=== PATIENT | female | born 1965 | race Caucasian/White ===

== ENCOUNTER → 2018-09-10 09:42 | Outpatient (CLI) | payer MEDICAID, SELFPAY ==
--- NOTE | 2018-09-10 09:45 | BI_ITS ---
MAMMOGRAPHY - BILATERAL SCREENING REASON FOR EXAM: Female, 52 years old. Routine annual screening examination. PERTINENT HISTORY: Aunt with breast cancer. TECHNIQUE: Digital bilateral breast michael (3D mammographic acquisition) in the CC and MLO projections. 2-D mediolateral oblique (MLO) and craniocaudad (CC) views of both breasts were obtained. CAD: Full Field Digital Mammography with Computer Added Detection was performed. COMPARISON: No comparison mammograms available at this time. If any prior films become available, an addendum to this report can be generated. FINDINGS: Breast Composition: The breasts are heterogeneously dense, which may obscure small masses. There is a 5.7 mm x 8.2 mm slightly irregular nodular density in the upper deep lateral portion of the left breast. Correlation with ultrasound and additional views including 90 degree lateral and compression spot views is recommended. No other significant abnormalities are identified. BI/SCREENING MAMM (CAD), BILAT IMPRESSION: 5.7 mm x 8.2 mm slightly irregular nodular density in the deep upper lateral portion of the left breast as described. The patient will be recalled for ultrasound and additional views. ASSESSMENT CATEGORY: BIRADS Category 0: Incomplete. Need additional imaging evaluation. A letter regarding these results will be sent to the patient by the facility within 30 days. Approximately 10% of breast cancers are not detected by mammography. A normal mammogram should not delay biopsy of a clinically suspicious abnormality. [id number] Electronically Signed: Devonte Justin MD at 13:00 EST Tel [phone], Service support ,
--- OUTSIDE RECORDS SUMMARY | 2018-12-12 16:46 | XMS RPT_ITS ---
:1965 Author Organization OHIP Care Team Providers Name Role Phone Marium Green Attending Unavailable Mibenitael, Marium Attending Unavailable Mibenitael, Marium Referring Unavailable Miedel, Marium Primary Care Unavailable Robotham, Juany Attending Unavailable Miedel, Marium Referring Unavailable Robotham, Juany Attending Unavailable Robotham, Juany Referring Unavailable Miedel, Marium Primary Care Unavailable Robotham, Juany Attending Unavailable Robotham, Juany Referring Unavailable Miedel, Marium Primary Care Unavailable Robotham, Juany Consulting Unavailable Robotham, Juany Attending Unavailable Miedel, Marium Primary Care Unavailable PROBLEMS PROBLEMS DATE TYPE CONDITION / CODE ATTENDING STATUS SOURCE 10/01/2018 Unknown N63.20 - Christi Active Yaz Unspecified lump [facility] left Hospital breast, Repository unspecified quadrant / N63.20(ICD-10) PROCEDURES PROCEDURES No Procedure Records FoundRESULTS RESULTS BREAST LIMITED Observed: 10/08/2018 Status: F Source: Y[facility] UNILATERAL 7[facility] AM [facility] Imaging Services [address] [place] [address] Breast Limited Unilateral MR#: [id number] Acct: [id number] Name: NATHALIE PENALOZA Rep #: [id number] : 1965 F 52 From: Devonte Justin MD PCP: Marium Green MD Status: REG CLI Study: Breast Limited Unilateral Date of Exam: 10/08/18 Exam# [id number] Ordering Dr: Juany Barraza MD STUDY: ULTRASOUND BREAST - LEFT REASON FOR EXAM: Female, 52 years old. Palpable lump left breast. TECHNIQUE: Axial and longitudinal images of the LEFT breast were performed with a high resolution ultrasound transducer. COMPARISON: Comparison is made with prior ultrasound of the left breast dated October 01, 2018. FINDINGS: LEFT Breast: The patient underwent a recent biopsy of the nodular density at that site. At this time, a tissue clip marker is seen within the nodule. The nodule as a different appearance with a 6.8 mm x 3.9 mm echogenic nodule within it suggestive of post biopsy hematoma. Short-term follow-up is recommended. US/Breast Limited Unilateral IMPRESSION: Status post left breast biopsy suggestive of postop biopsy hematoma. A repeat sonogram in 3 months is recommended. ASSESSMENT CATEGORY: BIRADS Category 3: Probably Benign - Short-Interval Follow- up Suggested. A letter regarding these results will be sent to the patient by the facility within 30 days. Electronically Signed: Devonte Justin MD at 8:47 EST Tel [phone], Service support , CC: Marium Green MD; Juany Barraza MD Automatic Pilot Mechanic: Signed OPERATIVE REPORT Observed: 10/01/2018 Status: F Source: YAZ 8:25 AM [facility] REPOSITORY [facility] Medical Records Department [address] [place] [address] Operative Report 10/01/18814 MR#: [id number] Acct: [id number] Name: NATHALIE PENALOZA Rep #: [id number] : 1965 52 From: Juany Barraza MD PCP: Marium Green MD Status: REG CLI Y Location: OPUS Operative Report Date of Procedure: 10/01/18 Procedure: ultrasound-guided core biopsy Indications: 52 year-old female with hypoechoic nodule at 1:00 in the left breast 3 centimeters from the nipple. Risk benefits were discussed the patient and she elected to proceed with ultrasound guided core biopsy with clip placement Description of procedure: Patient was brought into the ultrasound room in the left breast was marked. A timeout was completed verifying correct patient, procedure, site, specially, prior to beginning procedure. The left breast was prepped and draped in usual sterile fashion and using local anesthesia was obtained with 1% lidocaine with epi. The lesion was located with the ultrasound. Small incision was made with 11 blade to introduced the mammotome through the skin. Under ultrasound guidance multiple core samples were obtained using then 13-gauge mammotome and sent in formalin for pathology. The mammotome mammostar clip was then deployed into the biopsy cavity under ultrasound guidance and a picture was taken. Upon completion procedure hemostasis was obtained and a Steri-Strip and OpSite were placed. Patient was then taken to the mammography suite for clip verification. The clip was verified. The patient tolerated the procedure well and was discharged from the breast imaging department good condition. complications: none 10/01/18824 <Electronically signed by Juany Barraza MD> Date Juany Barraza MD CC: Marium Green MD; Juany Barraza MD Signed BREAST BIOPSY Observed: 10/01/2018 Status: F Source: YAZ (CHOOSE SITE) 8:00 AM [facility] REPOSITORY Patient: NATHALIE PENALOZA : 1965 (52/F) Acct Num: [id number] Phys: Christi CHANEY,[facility] Unit Num: [id number] Loc: OPUS Specimen: [id number] Received: 10/01/18854 Spec Type: BREAST BX TISSUES 1 TISSUES: Left breast, NOS COMMENT Correlation with clinical, radiologic findings and appropriate follow up are necessary. If there is high suspicion of malignancy, rebiopsy is suggested if clinically indicated. GROSS DESCRIPTION Received is one container labeled with the patient's name and not further designated. The specimen consists of multiple irregular and elongated fragments of light mccloud-yellow soft tissue that in aggregate measure 1.5 x 1 x 0.1 cm. The specimen is totally submitted in one cassette. / AM:lg 10/01/18 TC:4 CPT: 23876 HEADER OPERATION: Left breast biopsy PRE-OP DIAGNOSIS: Left breast lesion TISSUE SUBMITTED: Left breast 1 o'clock, 3 cm from nipple, nodule ISCHEMIC TIME: 1 minute FIXATION TIME: 12.5 hours MICROSCOPIC DESCRIPTION Slides are reviewed. MICROSCOPIC DIAGNOSIS Left breast lesion, 1 o'clock, 3 cm from nipple, core biopsy: Fragments of benign breast tissue, no pathologic diagnosis. Negative for atypia or malignancy. SJ:lg 10/02/18 Signed Juliano Couch MD 10/02/18 <signature on file> Performed By: #### PBRBX #### [facility] [address] [place], [place], [address] US BREAST BIOPSY Observed: 10/01/2018 Status: F Source: YAZ 1ST LESION 7:22 AM [facility] REPOSITORY [facility] Imaging Services [address] [place] [address] US Breast Biopsy 1st Lesion MR#: [id number] Acct: [id number] Name: NATHALIE PENALOZA Rep #: [id number] : 1965 F 52 From: Devonte Justin MD PCP: Marium Green MD Status: REG CLI Study: US Breast Biopsy 1st Lesion Date of Exam: 10/01/18 Exam# [id number] Ordering Dr: Juany Barraza MD STUDY: ULTRASOUND BREAST - LEFT REASON FOR EXAM: Female, 52 years old. Ultrasound guided left breast biopsy. TECHNIQUE: Axial and longitudinal images of the LEFT breast were performed with a high resolution ultrasound transducer. COMPARISON: Comparison is made with prior sonogram of the left breast dated September 12, 2018. FINDINGS: LEFT Breast: The surgeon performed a biopsy of the 5 mm x 7 mm hypodense nodule at the 1:00 position of the breast at 3 cm from the nipple. A tissue clip marker is seen at that site. US/US Breast Biopsy 1st Lesion IMPRESSION: Ultrasound guided breast biopsy of the nodular density at the 1:00 position breast at 3 cm from the nipple. ASSESSMENT CATEGORY: BIRADS Category 4: Suspicious - Biopsy Should Be Considered. A letter regarding these results will be sent to the patient by the facility within 30 days. Electronically Signed: Devonte Justin MD at 8:56 EST Tel [phone], Service support , CC: Marium Green MD; Juany Barraza MD Automatic Pilot Mechanic: Signed SURGERY VISIT REPORT Observed: 09/20/2018 Status: F Source: INDIAN HEAD 3:12 PM [facility] REPOSITORY [facility] [address] [place] [address] [address] [place], [place] [address] OFFICE VISIT Date of Service: 09/20/18 MR#: [id number] Acct: [id number] Name: NATHALIE PENALOZA Rep #: [id number] : 1965 Provider: Juany Barraza MD Age/Sex: 52/F Location: BMS.[facility]SA Status: Signed Intake Vital Signs09/20/18 Height 5 ft 2 in 09/20/18 Weight: 171 lb Intake Visit Reasons: Abnormal Mammo L Breast Mammo AND US 09/12 [facility] [employer] G Required: No Is patient in pain?: No Allergies terbinafine [From Lamisil] Allergy (Unknown, Verified 09/20/18 14:26) Unknown Medications NK 09/20/18 [History Confirmed 09/20/18] [facility] Medical History Abnormal mammogram of left breast (Acute) Surgical History No significant past surgical history (Acute) Family History Father Colon cancer Cancer skin Brother Cancer skin cancer Kidney disease Social History Smoking Status: Never smoker alcohol intake: current alcohol intake frequency: holidays/special occasions only substance use type: does not use caffeine: Yes what type of physical activity do you participate in: walking, running frequency: 5-6 times per week HPI HPI HPI: NATHALIE PENALOZA, is a 52 F who presents to the office today for left breast mass. Patient denies any lumps or masses in either breast or trauma to either breast or nipple discharge. Patient had her first mammography on 09/10/18 which showed a 5.7 mm x 8.2 mm slightly irregular nodule density in the deep upper lateral portion of the left breast and an ultrasound was also ordered which showed a 5 mm x 7 mm x 4 mm hypodense slightly irregular nodule at the 1 o'clock position 3 cm from the nipple in the left breast and BI-RADS 4 Luly model Age: 52 Age of menses: 10 Age at time of first child: None Family history of breast cancer: No immediate, maternal aunt in her 70s Number of past breast biopsies: None Number breast biopsy showing atypical hyperplasia: n/a Race/ethnicity: white 5 year risk 1.3 % (average of 1.4%) Lifetime risk 9.3 % (average 10.4 %) ROS Breast Breast: No nipple discharge Exam Const General: cooperative, comfortable, no acute distress Chest Chest palpation AND inspection: normal inspection of the chest Breast inspection: normal inspection of the breasts, normal inspection of the axillae Breast Palpation: Yes normal palpation of the breasts (bilaterally), Yes no axillary lymphadenopathy (bilaterally), No breast mass, No nipple discharge, No supraclavicular, No change in skin, No axillary lymphadenopathy Resp Effort AND Inspection: normal respiratory effort Assessment AND Plan Problems 1. Mass of left breast N63.20 Plan I have discussed above with the patient. I have recommended ultrasound guided needle core breast biopsy with vacuum assistance in radiology. I have described the procedure to the patient. A marker clip will be placed to identify the location. Patient has been counseled to the risks/benefits of the procedure. I have explained the risks of the surgery, including but not limited to: infection, bleeding, injury to any blood vessels/nerves, scar tissue, missing the lesion, further surgery, etc. - the patient understands and agrees to proceed. I have answered all of the patient's questions to her satisfaction and she has no further questions. Juany Barraza M.D. Pager: [phone] [facility] [address] [place] [address], [address] [place] [address] Office: [phone] Orders Orders: Plan Detail Follow Up We will schedule left breast ultrasound-guided breast Coding Level of Care Code Off vis,new,level 3 Diagnoses Mass of left breast N63.20 09/20/18 1512 <Electronically signed by Juany Barraza MD> Date Juany Barraza MD Cosigner Signature: Date (if applicable) CC: Marium Green MD BREAST LIMITED Observed: 09/12/2018 Status: F Source: YAZ UNILATERAL 9:15 AM [facility] REPOSITORY [facility] Imaging Services [address] [place] [address] Breast Limited Unilateral MR#: [id number] Acct: [id number] Name: NATHALIE PENALOZA Rep #: [id number] : 1965 F 52 From: Devonte Justin MD PCP: Marium Green MD Status: REG CLI Study: Breast Limited Unilateral Date of Exam: 09/12/18 Exam# [id number] Ordering Dr: Marium Green MD STUDY: ULTRASOUND BREAST - LEFT REASON FOR EXAM: Female, 52 years old. Abnormal screening mammogram. TECHNIQUE: Axial and longitudinal images of the LEFT breast were performed with a high resolution ultrasound transducer. COMPARISON: Comparison is made with prior screening mammogram dated September 10, 2018 and September 12, 2018. FINDINGS: LEFT Breast: There is a 5 mm x 7 mm x 4 mm hypodense slightly irregular nodule at the 1:00 position of breast at 3 cm from the nipple. A biopsy is recommended for further evaluation. US/Breast Limited Unilateral IMPRESSION: 5 mm x 7 mm x 4 mm slightly irregular hypodense nodule at the 1:00 position of the breast at 3 cm from the nipple. A biopsy is recommended. ASSESSMENT CATEGORY: BIRADS Category 4: Suspicious - Biopsy Should Be Considered. A letter regarding these results will be sent to the patient by the facility within 30 days. Electronically Signed: Devonte Justin MD at 14:42 EST Tel [phone], Service support , CC: Marium Green MD Automatic Pilot Mechanic: Signed DIAG MAMM W/CAD, Observed: 09/12/2018 Status: F Source: YAZ UNIL 9:15 AM [facility] REPOSITORY [facility] Imaging Services [address] [place] [address] DIAG MAMM W/CAD, UNILAT MR#: [id number] Acct: [id number] Name: NATHALIE PENALOZA Rep #: [id number] : 1965 F 52 From: Devonte Justin MD PCP: Marium Green MD Status: REG CLI Study: DIAG MAMM W/CAD, UNILAT Date of Exam: 09/12/18 Exam# [id number] Ordering Dr: Marium Green MD MAMMOGRAPHY - UNILATERAL DIAGNOSTIC: LEFT BREAST REASON FOR EXAM: Female, 52 years old. Abnormal screening mammogram. PERTINENT HISTORY: Aunt with breast cancer. TECHNIQUE: Compression spot views of the left breast in the MLO and craniocaudad views were obtained. CAD: Full Field Digital Mammography with Computer Added Detection was performed. COMPARISON: Comparison is made with prior mammogram dated September 10, 2018. FINDINGS: Breast Composition: The breasts are heterogeneously dense, which may obscure small masses. Once again, the slightly irregular nodular density is seen in the deep lateral portion of the left breast. Correlation with ultrasound is recommended. No other significant abnormalities are identified. BI/DIAG MAMM W/CAD, UNILAT IMPRESSION: Persistent nodular density in the axillary region of the left breast as described. Correlation with ultrasound is recommended. ASSESSMENT CATEGORY: BIRADS Category 0: Incomplete. Need additional imaging evaluation. A letter regarding these results will be sent to the patient by the facility within 30 days. Approximately 10% of breast cancers are not detected by mammography. A normal mammogram should not delay biopsy of a clinically suspicious abnormality. Electronically Signed: Devonte Justin MD at 15:21 EST Tel [phone], Service support , CC: Marium Green MD Automatic Pilot Mechanic: Signed SCREENING MAMM (CAD), Observed: 09/10/2018 Status: F Source: YAZ BILAT 9:45 AM [facility] REPOSITORY [facility] Imaging Services [address] [place] [address] SCREENING MAMM (CAD), BILAT MR#: [id number] Acct: [id number] Name: TERRY PENALOZA Rep #: [id number] : 1965 F 52 From: Devonte Justin MD PCP: Marium Green MD Status: REG CLI Study: SCREENING MAMM (CAD), BILAT Date of Exam: 09/10/18 Exam# [id number] Ordering Dr: Marium Green MD MAMMOGRAPHY - BILATERAL SCREENING REASON FOR EXAM: Female, 52 years old. Routine annual screening examination. PERTINENT HISTORY: Aunt with breast cancer. TECHNIQUE: Digital bilateral breast michael (3D mammographic acquisition) in the CC and MLO projections. 2-D mediolateral oblique (MLO) and craniocaudad (CC) views of both breasts were obtained. CAD: Full Field Digital Mammography with Computer Added Detection was performed. COMPARISON: No comparison mammograms available at this time. If any prior films become available, an addendum to this report can be generated. FINDINGS: Breast Composition: The breasts are heterogeneously dense, which may obscure small masses. There is a 5.7 mm x 8.2 mm slightly irregular nodular density in the upper deep lateral portion of the left breast. Correlation with ultrasound and additional views including 90 degree lateral and compression spot views is recommended. No other significant abnormalities are identified. BI/SCREENING MAMM (CAD), BILAT IMPRESSION: 5.7 mm x 8.2 mm slightly irregular nodular density in the deep upper lateral portion of the left breast as described. The patient will be recalled for ultrasound and additional views. ASSESSMENT CATEGORY: BIRADS Category 0: Incomplete. Need additional imaging evaluation. A letter regarding these results will be sent to the patient by the facility within 30 days. Approximately 10% of breast cancers are not detected by mammography. A normal mammogram should not delay biopsy of a clinically suspicious abnormality. [id number] Electronically Signed: Devonte Justin MD at 13:00 EST Tel [phone], Service support , CC: Marium Green MD Automatic Pilot Mechanic: Signed ALLERGIES ALLERGIES DATE TYPE / CODE NAME / CODE REACTION SEVERITY SOURCE 09/20/2018 Drug terbinafine/ Unknown Unknown [facility] Allergy/4160 [id number]([facility] 76794(SNOMED XNORM) Repository CT) ENCOUNTERS ENCOUNTERS ADMIT/DISCHARGE ACCOUNT ADMITTING ENCOUNTER LOCATION SOURCE NUMBER CLASS 10/08/2018 [id number] Ambulatory Yaz Yaz 8 [facility] ing:OPUS Repository 10/01/2018 [id number] Ambulatory BMSBuilding:[place] [address] [place] Repository 10/01/2018 [id number] Ambulatory Yaz [place] 8 [facility] ing:OPUS Repository 09/20/2018/ [id number] Ambulatory BMSBuilding:B Yaz 8 8 [place] Repository 09/12/2018 [id number] [facility] Yaz Yaz[address] ing:OPUS Repository 09/10/2018 [id number] [facility] Yaz Yaz[address] ing:OPBI Repository PAYERS PAYERS ENCOUNTER GUARANTOR PAYER SUBSCRIBER SOURCE 10/08/2018 NATHALIE Cunningham Primary NATHALIE Parsons [id number] MANDIE Insurance:BEA SMILEYOB: [facility] [id number] Hospital [address]Cgt: [phone]) PLANPolicy Number: Repository [phone] ) [id number] Date:[id number] [address] [place] [address]XW: 10/08/2018 Secondary NOT GIVENUNK [place] Insurance:SELF PAY [facility] Number: Effective Repository Date:2018-10-03 10/01/2018 NATHALIE Cunnnigham Primary NATHALIE Cunningham Yaz [id number] KOUNTZ Insurance:FREDDIEEYE DUSTINHIOB: [facility] [id number] Hospital [id number]: (330) PLANPolicy Number: Repository [phone] () [id number] Date:[id number] [address] [place] [address] 53692UB: 10/01/2018 Secondary NOT GIVENUNK [place] Insurance:SELF PAY [facility] Number: Effective Repository Date:2018-10-01 10/01/2018 NATHALIE Cunningham Primary NATHALIE Cunningham Yaz [id number] [place] Insurance:SIERRAE DUSTINHIOB: [facility] [id number] Hospital [id number]: [phone]) PLANPolicy Number: Repository [phone] () [id number] Date:[id number] [address] [place] [address] 70447MF: 10/01/2018 Secondary NOT GIVENUNK [place] Insurance:SELF PAY [facility] Hospital Number: Effective Repository Date:2018-09-20 09/20/2018 NATHALIE Cunningham Primary NATHALIE Cunningham [place] [id number] KOUNTZ Insurance:BEA CHANHIOB: [facility] [id number] Hospital [address]Wmw: ([phone]) PLANPolicy Number: Repository [phone] () [id number] Date:2198-87-45NH [address] [place] [address]WA: 09/20/2018 Secondary NOT GIVENUNK Yaz Insurance:SELF PAY [facility] Number: Effective Repository Date:2018-09-18 09/12/2018 NATHALIE Cunningham Primary NATHALIE Cunningham [place] [id number] K[place]Z Insurance:SIERRAE DUSTINHIOB: [facility] [id number] [id number]: [phone]) PLANPolicy Number: Repository [phone] () [id number] Date:0805-45-72[address] [id number]: 09/12/2018 Secondary NOT GIVENUNK Yaz Insurance:SELF PAY [facility] Effective Repository Date:2018-09-10 09/10/2018 TERRY M Primary TERRY M Yaz [id number] [facility] Insurance:BEA [facility]: [facility] [id number] Hospital [id number]: 330 PLANPolicy Number: Repository [phone] () [id number] Date:5197-17-93MH [address] [place] [address]MO: 09/10/2018 Secondary NOT GIVENUNK Yaz Insurance:SELF PAY [facility] Number: Effective Repository Date:2018-07-19
== END ==
PROVIDERS: PCP Family Medicine; Visit Provider Family Medicine
DX: Z12.31 Encounter for screening mammogram for malignant neoplasm of breast (principal)
CPT/HCPCS: 77063; 77067

== ENCOUNTER → 2018-09-12 09:13 | Outpatient (CLI) | payer MEDICAID, SELFPAY ==
--- NOTE | 2018-09-12 09:14 | BI_ITS ---
MAMMOGRAPHY - UNILATERAL DIAGNOSTIC: LEFT BREAST REASON FOR EXAM: Female, 52 years old. Abnormal screening mammogram. PERTINENT HISTORY: Aunt with breast cancer. TECHNIQUE: Compression spot views of the left breast in the MLO and craniocaudad views were obtained. CAD: Full Field Digital Mammography with Computer Added Detection was performed. COMPARISON: Comparison is made with prior mammogram dated September 10, 2018. FINDINGS: Breast Composition: The breasts are heterogeneously dense, which may obscure small masses. Once again, the slightly irregular nodular density is seen in the deep lateral portion of the left breast. Correlation with ultrasound is recommended. No other significant abnormalities are identified. BI/DIAG MAMM W/CAD, UNILAT IMPRESSION: Persistent nodular density in the axillary region of the left breast as described. Correlation with ultrasound is recommended. ASSESSMENT CATEGORY: BIRADS Category 0: Incomplete. Need additional imaging evaluation. A letter regarding these results will be sent to the patient by the facility within 30 days. Approximately 10% of breast cancers are not detected by mammography. A normal mammogram should not delay biopsy of a clinically suspicious abnormality. Electronically Signed: Devonte Justin MD at 15:21 EST Tel [phone], Service support ,
--- NOTE | 2018-09-12 09:15 | US_ITS ---
STUDY: ULTRASOUND BREAST - LEFT REASON FOR EXAM: Female, 52 years old. Abnormal screening mammogram. TECHNIQUE: Axial and longitudinal images of the LEFT breast were performed with a high resolution ultrasound transducer. COMPARISON: Comparison is made with prior screening mammogram dated September 10, 2018 and September 12, 2018. FINDINGS: LEFT Breast: There is a 5 mm x 7 mm x 4 mm hypodense slightly irregular nodule at the 1:00 position of breast at 3 cm from the nipple. A biopsy is recommended for further evaluation. US/Breast Limited Unilateral IMPRESSION: 5 mm x 7 mm x 4 mm slightly irregular hypodense nodule at the 1:00 position of the breast at 3 cm from the nipple. A biopsy is recommended. ASSESSMENT CATEGORY: BIRADS Category 4: Suspicious - Biopsy Should Be Considered. A letter regarding these results will be sent to the patient by the facility within 30 days. Electronically Signed: Devonte Justin MD at 14:42 EST Tel [phone], Service support ,
== END ==
PROVIDERS: Family Provider Family Medicine; PCP Family Medicine; Referring Provider Family Medicine; Visit Provider Family Medicine
DX: N63.21 Unspecified lump in the left breast, upper outer quadrant (principal)
CPT/HCPCS: 76642; 77065

== ENCOUNTER → 2018-10-01 07:18 | Outpatient (CLI) | payer MEDICAID, SELFPAY ==
[2018-09-20 14:25] VITALS: BMI 31.2
--- NOTE | 2018-10-01 07:22 | US_ITS ---
STUDY: ULTRASOUND BREAST - LEFT REASON FOR EXAM: Female, 52 years old. Ultrasound guided left breast biopsy. TECHNIQUE: Axial and longitudinal images of the LEFT breast were performed with a high resolution ultrasound transducer. COMPARISON: Comparison is made with prior sonogram of the left breast dated September 12, 2018. FINDINGS: LEFT Breast: The surgeon performed a biopsy of the 5 mm x 7 mm hypodense nodule at the 1:00 position of the breast at 3 cm from the nipple. A tissue clip marker is seen at that site. US/US Breast Biopsy 1st Lesion IMPRESSION: Ultrasound guided breast biopsy of the nodular density at the 1:00 position breast at 3 cm from the nipple. ASSESSMENT CATEGORY: BIRADS Category 4: Suspicious - Biopsy Should Be Considered. A letter regarding these results will be sent to the patient by the facility within 30 days. Electronically Signed: Devonte Justin MD at 8:56 EST Tel [phone], Service support ,
--- NOTE | 2018-10-01 08:00 | BRBX_PTH ---
PATIENT: NATHALIE PENALOZA LOC: [facility]US U#:[id number] AGE/SX: 59/F ROOM: RE10/01/[address]: Dr. Juany Barraza MD : 1965 BED: DIS: SPEC #: [id number] RECD: 10/01/18 08:55 STATUS: JOO EVA #: [id number] ANDREEA: 10/01/18 08:[address]: Juany Barraza DEPT: SURGICAL PATHOLOGY RECD BY: Lakhwinder Ramirez ENTERED: 10/01/18 11:47 SP TYPE: BREAST BX OTHR DR: Dr. Marium Green MD Tissues: Left breast, NOS Procedures: Surgery Specimen Level IV HEADER OPERATION: Left breast biopsy PRE-OP DIAGNOSIS: Left breast lesion TISSUE SUBMITTED: Left breast 1 o'clock, 3 cm from nipple, nodule ISCHEMIC TIME: 1 minute FIXATION TIME: 12.5 hours MICROSCOPIC DIAGNOSIS Left breast lesion, 1 o'clock, 3 cm from nipple, core biopsy: Fragments of benign breast tissue, no pathologic diagnosis. Negative for atypia or malignancy. SJ:rg 10/02/18 COMMENT Correlation with clinical, radiologic findings and appropriate follow up are necessary. If there is high suspicion of malignancy, rebiopsy is suggested if clinically indicated. MICROSCOPIC DESCRIPTION Slides are reviewed. GROSS DESCRIPTION Received is one container labeled with the patient's name and not further designated. The specimen consists of multiple irregular and elongated fragments of light mccloud-yellow soft tissue that in aggregate measure 1.5 x 1 x 0.1 cm. The specimen is totally submitted in one cassette. / AM:lg 10/01/18 TC:4 CPT: 10092
--- NOTE | 2018-10-01 08:15 | PCM.OP.BLANK ---
Operative Report Date of Procedure: 10/01/18 Procedure: ultrasound-guided core biopsy Indications: 52 year-old female with hypoechoic nodule at 1:00 in the left breast 3 centimeters from the nipple. Risk benefits were discussed the patient and she elected to proceed with ultrasound guided core biopsy with clip placement Description of procedure: Patient was brought into the ultrasound room in the left breast was marked. A timeout was completed verifying correct patient, procedure, site, specially, prior to beginning procedure. The left breast was prepped and draped in usual sterile fashion and using local anesthesia was obtained with 1% lidocaine with epi. The lesion was located with the ultrasound. Small incision was made with 11 blade to introduced the mammotome through the skin. Under ultrasound guidance multiple core samples were obtained using then 13-gauge mammotome and sent in formalin for pathology. The mammotome mammostar clip was then deployed into the biopsy cavity under ultrasound guidance and a picture was taken. Upon completion procedure hemostasis was obtained and a Steri-Strip and OpSite were placed. Patient was then taken to the mammography suite for clip verification. The clip was verified. The patient tolerated the procedure well and was discharged from the breast imaging department good condition. complications: none
== END ==
PROVIDERS: Family Provider Family Medicine; PCP Family Medicine; Referring Provider Surgery; Visit Provider Surgery
DX: N63.20 Unspecified lump in the left breast, unspecified quadrant (principal)
CPT/HCPCS: 19083; 88305

== ENCOUNTER → 2018-10-08 07:21 | Outpatient (CLI) | payer MEDICAID, SELFPAY ==
[2018-09-20 14:25] VITALS: BMI 31.2
--- NOTE | 2018-10-08 07:24 | US_ITS ---
STUDY: ULTRASOUND BREAST - LEFT REASON FOR EXAM: Female, 52 years old. Palpable lump left breast. TECHNIQUE: Axial and longitudinal images of the LEFT breast were performed with a high resolution ultrasound transducer. COMPARISON: Comparison is made with prior ultrasound of the left breast dated October 01, 2018. FINDINGS: LEFT Breast: The patient underwent a recent biopsy of the nodular density at that site. At this time, a tissue clip marker is seen within the nodule. The nodule as a different appearance with a 6.8 mm x 3.9 mm echogenic nodule within it suggestive of post biopsy hematoma. Short-term follow-up is recommended. US/Breast Limited Unilateral IMPRESSION: Status post left breast biopsy suggestive of postop biopsy hematoma. A repeat sonogram in 3 months is recommended. ASSESSMENT CATEGORY: BIRADS Category 3: Probably Benign - Short-Interval Follow-up Suggested. A letter regarding these results will be sent to the patient by the facility within 30 days. Electronically Signed: Devonte Justin MD at 8:47 EST Tel [phone], Service support ,
== END ==
PROVIDERS: Family Provider Family Medicine; PCP Family Medicine; Visit Provider Surgery
DX: N63.20 Unspecified lump in the left breast, unspecified quadrant (principal)
CPT/HCPCS: 76642

== ENCOUNTER 2018-10-29 12:12 | Emergency (ER) | payer MEDICAID, SELFPAY ==
[2018-09-20 14:25] VITALS: BMI 31.2
[2018-10-29 12:15] VITALS: BP 129/81; PULSE 100; RESP 18; TEMP 36.6; O2SAT 98; BMI 30.2
--- NOTE | 2018-10-29 12:32 | ED.DCSUM_ITS ---
- ER Visit Summary Date of Service: 10/29/18 Chief Complaint: Left fourth finger injury History of Present Illness: The patient is a 52 F who is otherwise healthy presents to the emergency department with left fourth finger injury. Patient states that she was slicing bread. She is right-hand dominant. She states she slipped with a serrated knife and cut on the dorsum of the tip of her left fourth finger. She went through the nail. She states she was unable to get the bleeding to stop. She presented here for further evaluation. She is unsure of her last tetanus. She does not take anticoagulants. Physical Examination: Exam is relatively unremarkable. The patient does have a 1 cm full-thickness laceration just through the distal tip of the left fourth nail on the lateral aspect. Two-point determination is preserved. Cap refill is less than 2 seconds. Test Results: [] Emergency Department Course and Treatment: The patient's tetanus was updated. She underwent digital block. Under sterile conditions, the wound was irrigated and cleaned. I did remove the part of the nail that had avulsed. I removed just a little more of the nail more proximally. 2 gut sutures were placed in the nail bed. 3 simple interrupted sutures were placed in the fingertip. Hemostasis was achieved. Patient was placed in a bacitracin dressing with AlumaFoam splint. She was counseled on concerning symptoms and reasons to return. She will be discharged home. Treatment Plan: [] Disposition: Discharge Impression: left 4th finger laceration with repair This note was generated with [employer] dictation software. It may contain incorrect words, spelling, and punctuation that were not noted in review of the chart prior to signing ED Disposition - Plan for ED Patient: Instructions: ED Laceration Hand Referrals: Marium Green MD [Primary Care Provider] - 7 Days for suture removal
[2018-10-29] MEDS: Diphth,Pertuss(Acell),Tet Vac 0.5 ML Vial IM (12:42)
[2018-10-29] MEDS: Bupivacaine Mpf 0.5% 30 ML VIAL INFILT (12:45)
--- NOTE | 2018-10-29 13:34 | ED.RN ---
DISCHARGE INSTRUCTIONS GIVEN TO AND REVIEWED WITH PATIENT, PATIENT DENIES QUESTIONS OR CONCERNS AND VOICES UNDERSTANDING OF DISCHARGE INSTRUCTIONS. PT AMBULATES OUT OF ROOM WITHOUT DIFFICULTY.
== END 2018-10-29 13:34 | disposition home or self-care (01) ==
LOC: ED 12:56
PROVIDERS: Emergency Provider Emergency Medicine; Family Provider Family Medicine; PCP Family Medicine
DX: S61.315A Laceration without foreign body of left ring finger with damage to nail, initial encounter (principal); W26.0XXA Contact with knife, initial encounter; Y93.9 Activity, unspecified; Y92.9 Unspecified place or not applicable
CPT/HCPCS: 11760; 12001; 90471; 90715; 99282

== ENCOUNTER → 2019-01-02 10:39 | Outpatient (CLI) | payer MEDICAID, SELFPAY ==
--- NOTE | 2019-01-02 10:40 | US_ITS ---
STUDY: ULTRASOUND BREAST - LEFT REASON FOR EXAM: Female, 53 years old. Prior biopsy in the left upper outer quadrant of the left breast. This is a follow-up examination. TECHNIQUE: Axial and longitudinal images of the LEFT breast were performed with a high resolution ultrasound transducer. COMPARISON: Comparison is made with prior ultrasound of the left breast dated October 08, 2018 and prior mammogram dated September 12, 2018. FINDINGS: LEFT Breast: There is a persistent 4 mm x 7 mm x 6 mm hypoechoic solid nodule at the 1:00 position in the breast at 3 cm from the nipple. The previously seen central echogenic nodule within this hypoechoic nodule as resolved. This corresponds to the biopsy site. US/Breast Limited Unilateral IMPRESSION: 4 mm x 7 mm x 6 mm well-defined hypoechoic solid nodule at the 1:00 position of the breast at 3 sinus from the nipple. ASSESSMENT CATEGORY: BIRADS Category 2: Benign. A letter regarding these results will be sent to the patient by the facility within 30 days. Electronically Signed: Devonte Justin, at 12:32 EDT , Service support ,
== END ==
PROVIDERS: Family Provider Family Medicine; PCP Family Medicine; Referring Provider Surgery; Visit Provider Surgery
DX: N63.20 Unspecified lump in the left breast, unspecified quadrant (principal)
CPT/HCPCS: 76642

== ENCOUNTER → 2019-01-14 | Outpatient (CLI) | payer MEDICAID, SELFPAY ==
--- NOTE | 2019-01-14 08:38 | US_ITS ---
STUDY: ULTRASOUND guided core biopsy BREAST - LEFT REASON FOR EXAM: Female, 53 years old. January 14, 2019 TECHNIQUE: Axial and longitudinal images of the LEFT breast were performed with a high resolution ultrasound transducer. COMPARISON: None. Procedure: A repeat left breast biopsy as the first biopsy did not yield diagnostic tissue. Patient was taken into the ultrasound suite and placed in the supine position with left arm elevated over the head. Limited and directed preprocedure sonography of the left breast redemonstrated the 10:00 lesion identified 3 cm from the nipple. Under ultrasound guidance and utilizing sterile technique, 4 passes appeared to been made through the 10:00 mass. The mass measures 0.6 x 0.7 x 0.5 cm. Lateral devices were removed, the soft tissues cleansed and an occlusive dressing applied. US/US Breast Biopsy 1st Lesion IMPRESSION: Successful, ultrasound-guided left breast core biopsy utilizing sterile technique. Procedure done by Dr. Lazarhom ASSESSMENT CATEGORY: BIRADS Category 4: Suspicious - Biopsy Should Be Considered. A letter regarding these results will be sent to the patient by the facility within 30 days. Electronically Signed: Jun Bradley MD at 12:50 EDT , Service support ,
--- NOTE | 2019-01-14 09:30 | BRBX_PTH ---
PATIENT: NATHALIE PENALOZA LOC: [facility] U#:[id number] AGE/SX: 53/F ROOM: RE01/14/[address]: Dr. Juany Barraza MD : 1965 BED: DIS: 01/14/2019 SPEC #: [id number] RECD: 01/14/19 09:43 STATUS: JOO EVA #: [id number] ANDREEA: 01/14/19 09:[address]: Juayn Barraza DEPT: SURGICAL PATHOLOGY RECD BY: Jenaro Lloyd ENTERED: 01/14/19 11:44 SP TYPE: BREAST BX OTHR DR: Dr. 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 Negative for atypia or malignancy. See comment. VIDAL:lg 01/15/19 COMMENT The findings are consistent with changes of previous biopsy site. Correlation with clinical, radiologic findings and appropriate follow up are necessary. Please make reference to previous specimen ([id number]) left breast lesion, 1 o'clock, 3 cm from nipple, core biopsy with diagnosis of fragments of benign breast tissue, no pathologic diagnosis. MICROSCOPIC DESCRIPTION Slides are reviewed. GROSS DESCRIPTION Received is one container labeled with the patient's name and not further designated. The specimen consists of multiple elongated fragments of light mccloud-white soft tissue that in aggregate measure 1 x 0.2 x 0.1 cm. The specimen is totally submitted in one cassette. / AM:lg 01/14/19 TC:5 CPT: 96223
--- NOTE | 2019-01-14 09:38 | PCM.OPRPT ---
Report of Operation Date of Procedure: 01/14/19 Pre-Operative Diagnosis: Left breast hypoechoic nodule at 1:00 3 cm from the nipple Post-Operative Diagnosis: Same Surgery/Procedure Performed:: Ultrasound-guided left breast biopsy Type of Anesthesia:: Local Specimen's removed: Left breast nodule 1:00 2 cm from the nipple Estimated Blood Loss (mL): Minimal Description of Procedure: Procedure: Left ultrasound-guided core biopsy Indications: 53 year-old female with the hypoechoic solid nodule at 1:00 in the left breast 3 cm from the nipple. In September patient had a biopsy of this area however only showed normal breast tissue attempted to re-biopsy it a week later however there is only really hematoma in the area. Follow-up in 3 months was ordered. 3 months was given a BI-RADS 2 however radiologist not aware that we did not have a true diagnosis of the hypoechoic nodule. This was discussed with patient and recommended ultrasound-guided left breast biopsy. Risk benefits were discussed the patient and she elected to proceed with ultrasound guided core biopsy with clip placement Description of procedure: Patient was brought into the ultrasound room in the left breast was marked. A timeout was completed verifying correct patient, procedure, site, specially, prior to beginning procedure. The left breast was prepped and draped in usual sterile fashion and using local anesthesia was obtained with 1% lidocaine with epi. The lesion was located with the ultrasound with the previous clip just lateral to the lesion. Small incision was made with 11 blade to introduced the BARD MaxCore through the skin. Under ultrasound guidance multiple core samples were obtained using then 14-gauge BARD MaxCore and sent in formalin for pathology. Ultrasound did show the BARD MaxCore through the center of the lesion multiple times. Upon completion procedure hemostasis was obtained and a Steri-Strip and OpSite were placed. The patient tolerated the procedure well and was discharged from the breast imaging department good condition. - Complications none
== END | disposition home or self-care (01) ==
LOC: OPUS 08:36
PROVIDERS: Family Provider Family Medicine; PCP Family Medicine; Referring Provider Surgery; Visit Provider Surgery
DX: R92.8 Other abnormal and inconclusive findings on diagnostic imaging of breast (principal)
CPT/HCPCS: 19083; 88305

== ENCOUNTER → 2019-07-16 08:45 | Outpatient (CLI) | payer MEDICAID, SELFPAY ==
--- NOTE | 2019-07-16 08:46 | US_ITS ---
STUDY: ULTRASOUND BREAST - LEFT REASON FOR EXAM: Female, 53 years old. Left breast mass. 6 month follow-up of a left breast mass biopsy. TECHNIQUE: Axial and longitudinal images of the LEFT breast were performed with a high resolution ultrasound transducer. COMPARISON: Comparison is made with prior ultrasound of the left breast dated January 14, 2019. FINDINGS: LEFT Breast: There is a 7 mm x 7 mm x 7 mm hypoechoic solid nodule at the 1:00 position breast at 3 cm from nipple. A tissue clip marker is seen within it from prior biopsy. US/Breast Limited Unilateral IMPRESSION: Status post ultrasound-guided core biopsy of the abnormality at the 1:00 position breast at 3 cm from the nipple. A tissue marker is seen within it. ASSESSMENT CATEGORY: BIRADS Category 2: Benign. A letter regarding these results will be sent to the patient by the facility within 30 days. Electronically Signed: Devonte Justin, at 15:22 EDT , Service support ,
== END ==
PROVIDERS: Family Provider Family Medicine; PCP Family Medicine; Referring Provider Surgery; Visit Provider Surgery
DX: N63.20 Unspecified lump in the left breast, unspecified quadrant (principal)
CPT/HCPCS: 76642

== ENCOUNTER → 2019-09-11 09:36 | Outpatient (CLI) | payer MEDICAID, SELFPAY ==
[2019-07-24 08:51] VITALS: BMI 30.2
--- NOTE | 2019-09-11 09:37 | BI_ITS ---
MAMMOGRAPHY - BILATERAL SCREENING REASON FOR EXAM: Female, 53 years old. Routine annual screening examination. PERTINENT HISTORY: Aunt with breast cancer. TECHNIQUE: Digital bilateral breast [place] (3D mammographic acquisition) in the CC and MLO projections. 2-D mediolateral oblique (MLO) and craniocaudad (CC) views of both breasts were obtained. CAD: Full Field Digital Mammography with Computer Added Detection was performed. COMPARISON: Comparison is made with prior study dated September 10, 2018 and September 12, 2018. FINDINGS: Breast Composition: The breasts are heterogeneously dense, which may obscure small masses. There are no dominant masses or suspicious calcifications. A tissue clip marker is seen in the upper lateral aspect of the left breast. Stable small benign-appearing bilateral axillary lymph nodes. No other significant abnormalities are identified. There has been no significant change since the prior study. BI/SCREEN MAMM (CAD) W/INDIA BILAT IMPRESSION: Stable bilateral screening mammogram. Yearly follow-up mammogram recommended. (A) ASSESSMENT CATEGORY: BIRADS Category 2: Benign. A letter regarding these results will be sent to the patient by the facility within 30 days. Approximately 10% of breast cancers are not detected by mammography. A normal mammogram should not delay biopsy of a clinically suspicious abnormality. [id number] Electronically Signed: Devonte Justin, at 13:17 EST , Service support ,
== END ==
PROVIDERS: Family Provider Family Medicine; PCP Family Medicine; Referring Provider Surgery; Visit Provider Surgery
DX: Z12.31 Encounter for screening mammogram for malignant neoplasm of breast (principal)
CPT/HCPCS: 77063; 77067

== ENCOUNTER → 2020-09-23 09:47 | Outpatient (CLI) | payer MEDICAID, SELFPAY ==
[2019-07-24 08:51] VITALS: BMI 30.2
--- NOTE | 2020-09-23 09:52 | BI_ITS ---
MAMMOGRAPHY - BILATERAL SCREENING REASON FOR EXAM: Female, 54 years old. Routine annual screening examination. PERTINENT HISTORY: Aunt with breast cancer. History of prior left ultrasound-guided breast biopsy. TECHNIQUE: Digital bilateral breast [place] (3D mammographic acquisition) in the CC and MLO projections. 2-D mediolateral oblique (MLO) and craniocaudad (CC) views of both breasts were obtained. CAD: Full Field Digital Mammography with Computer Added Detection was performed. COMPARISON: Comparison is made with prior study dated 06/12/2019 and 09/10/2018. FINDINGS: Breast Composition: The breasts are heterogeneously dense, which may obscure small masses. There are no dominant masses or suspicious calcifications. A tissue clip marker is seen in the upper lateral portion of the left breast. Stable small benign-appearing bilateral axillary lymph nodes. No other significant abnormalities are identified. There has been no significant change since the prior study. BI/SCREEN MAMM (CAD) W/INDIA BILAT IMPRESSION: Stable bilateral screening mammogram. Yearly follow-up mammogram recommended. (A) ASSESSMENT CATEGORY: BIRADS Category 2: Benign. A letter regarding these results will be sent to the patient by the facility within 30 days. Approximately 10% of breast cancers are not detected by mammography. A normal mammogram should not delay biopsy of a clinically suspicious abnormality. [id number] Electronically Signed: Devonte Justin, at 10:39 EST , Service support ,
== END ==
PROVIDERS: PCP Family Medicine; Referring Provider Family Medicine; Visit Provider Family Medicine
DX: Z12.31 Encounter for screening mammogram for malignant neoplasm of breast (principal)
CPT/HCPCS: 77063; 77067

== ENCOUNTER 2021-09-26 14:02 | Outpatient (CLI) | payer MEDICAID, SELFPAY ==
--- NOTE | 2021-09-26 14:06 | BI_ITS ---
MAMMOGRAPHY - BILATERAL SCREENING REASON FOR EXAM: Female, 55 years old. Routine annual screening examination. PERTINENT HISTORY: Aunt with breast cancer. Prior bilateral ultrasound-guided breast biopsies. TECHNIQUE: Digital bilateral breast [place] (3D mammographic acquisition) in the CC and MLO projections. 2-D mediolateral oblique (MLO) and craniocaudad (CC) views of both breasts were obtained. CAD: Full Field Digital Mammography with Computer Added Detection was performed. COMPARISON: Comparison is made with prior study dated 09/23/2020 and 09/11/2019. FINDINGS: Breast Composition: The breasts are heterogeneously dense, which may obscure small masses. There are no dominant masses or suspicious calcifications. Interstitial clip markers once again seen in the upper lateral aspect of the left breast. No other significant abnormalities are identified. There has been no significant change since the prior study. BI/SCRN MAMM (CAD)W/INDIA BILAT IMPRESSION: Stable bilateral screening mammogram. Yearly follow-up mammogram recommended. (A) ASSESSMENT CATEGORY: BIRADS Category 2: Benign. A letter regarding these results will be sent to the patient by the facility within 30 days. Approximately 10% of breast cancers are not detected by mammography. A normal mammogram should not delay biopsy of a clinically suspicious abnormality. [id number] Electronically Signed: Devonte Justin MD at 14:42 EST , Service support ,
== END 2021-09-26 23:59 | disposition short-term general hospital (02) ==
LOC: OPBI 14:04
PROVIDERS: PCP Family Medicine; Referring Provider Family Medicine; Visit Provider Family Medicine
DX: Z12.31 Encounter for screening mammogram for malignant neoplasm of breast (principal)
CPT/HCPCS: 77063; 77067

== ENCOUNTER → 2023-07-09 | Outpatient (CLI) | payer MEDICAID, SELFPAY ==
[2023-07-09 10:30] LABS: ALB/GLOB Ratio 0.8 RATIO (0.9-2.4); AST(SGOT) 11 U/L (15-37); Alanine Aminotransfer ALT/SGPT 20 U/L (13-56); Albumin, Serum 3.4 g/dL (3.2-5.0); Alkaline Phosphatase 105 U/L (45-117); Anion Gap 6 (5-15); BUN 16 mg/dL (7-18); BUN/Creat Ratio 16.5 RATIO (10-20); Calcium,Total 8.9 mg/dL (8.5-10.1); Chloride 108 mmol/L (98-107); Cholesterol 196 mg/dL (200); Creatinine, Serum 0.97 mg/dL (0.55-1.02); EST Glomerular Filtration Rate 62 mL/min (>60); Est Glom Filt Rate - Afr Amer 75 mL/min (>60); Globulin 4.3 g/dL (2.2-4.2); Glucose 90 mg/dL (74-106); High Density Lipoprotein 48 mg/dL; Protein, Total 7.7 g/dL (6.4-8.2); Sodium Level 140 mmol/L (136-145); Triglycerides 221 mg/dL; Very Low Density Lipoprotein 44 mg/dL (5-40)
[2023-07-09 12:25] LABS: Absolute Lymphocyte Count 2.18 X10^3/uL (0.83-4.51); Absolute Neutrophil Count 5.6 X10^3/uL (2.0-7.7); Basophil# 0.05 X10^3/uL; Basophil% 0.6 % (0-1); Eosinophil# 0.13 X10^3/uL; Eosinophils% 1.5 % (0-5); Hematocrit 42.4 % (37-47); Hemoglobin 13.6 g/dL (12.0-15.0); Lymphocyte # 2.18 X10^3/ul (0.83-4.51); Lymphocyte % 25.2 % (19-41); Mean Corp Hgb Conc 32.1 g/dL (32-36); Mean Corpuscular Hgb 27.5 pg (27.0-32.0); Mean Corpuscular Volume 85.7 fL (81-99); Mean Platelet Vol. 11.8 fl (6.2-12.0); Monocyte# 0.68 X10^3/uL; Monocyte% 7.9 % (0-10); NRBC Flagged by Analyzer 0 % (0-5); Neutrophil # 5.58 X10^3/uL (2.7-7.7); Neutrophil % 64.6 % (47-70); Platelet Count 342 K/mm3 (150-450); RBC Distribution Width CV 12.6 % (11.6-14.6); RBC Distribution Width SD 39.2 fl (35.1-43.9); Red Blood Count 4.95 M/mm3 (4.2-5.4); White Blood Count 8.6 K/mm3 (4.4-11.0)
== END | disposition home or self-care (01) ==
LOC: MTLAB 07:53
PROVIDERS: PCP Family Medicine; Referring Provider Family Medicine; Visit Provider Family Medicine
DX: Z00.00 Encounter for general adult medical examination without abnormal findings (principal)
CPT/HCPCS: 36415; 80053; 80061; 85025

== ENCOUNTER → 2023-07-25 | Outpatient (CLI) | payer MEDICAID, SELFPAY ==
--- NOTE | 2023-07-25 09:46 | BI_ITS ---
MAMMOGRAPHY - BILATERAL SCREENING REASON FOR EXAM: Female, 57 years old. Routine annual screening examination. PERTINENT HISTORY: Aunt with breast cancer. Prior left ultrasound guided breast biopsy. TECHNIQUE: Digital bilateral breast [place] (3D mammographic acquisition) in the CC and MLO projections. 2-D mediolateral oblique (MLO) and craniocaudad (CC) views of both breasts were obtained. CAD: Full Field Digital Mammography with Computer Added Detection was performed. COMPARISON: Comparison is made with prior study dated September 26, 2021 and September 23, 2020. FINDINGS: Breast Composition: The breasts are heterogeneously dense, which may obscure small masses. There are no dominant masses or suspicious calcifications. Stable benign-appearing bilateral axillary lymph nodes. No other significant abnormalities are identified. There has been no significant change since the prior study. BI/SCRN MAMM (CAD)W/INDIA BILAT IMPRESSION: Stable bilateral screening mammogram. Yearly follow-up mammogram recommended. (A) ASSESSMENT CATEGORY: BIRADS Category 2: Benign. A letter regarding these results will be sent to the patient by the facility within 30 days. Approximately 10% of breast cancers are not detected by mammography. A normal mammogram should not delay biopsy of a clinically suspicious abnormality. [id number] Electronically Signed: Devonte Justin MD at 11:15 EDT ,
== END | disposition home or self-care (01) ==
LOC: OPBI 09:44
PROVIDERS: PCP Family Medicine; Referring Provider Family Medicine; Visit Provider Family Medicine
DX: Z12.31 Encounter for screening mammogram for malignant neoplasm of breast (principal); Z80.3 Family history of malignant neoplasm of breast
CPT/HCPCS: 77063; 77067

== ENCOUNTER → 2024-07-29 | Outpatient (CLI) | payer MEDICAID, SELFPAY ==
--- NOTE | 2024-07-29 09:56 | BI_ITS ---
MAMMOGRAPHY - BILATERAL SCREENING REASON FOR EXAM: Female, 58 years old. Routine annual screening examination. PERTINENT HISTORY: Aunt with breast cancer. Prior left ultrasound-guided breast biopsy. TECHNIQUE: Digital bilateral breast [place] (3D mammographic acquisition) in the CC and MLO projections. 2-D mediolateral oblique (MLO) and craniocaudad (CC) views of both breasts were obtained. CAD: Full Field Digital Mammography with Computer Added Detection was performed. COMPARISON: Comparison is made with prior study dated July 25, 2023 and September 26, 2001. FINDINGS: Breast Composition: The breasts are heterogeneously dense, which may obscure small masses. There are no dominant masses or suspicious calcifications. A tissue clip marker is seen in the upper lateral aspect of the left breast. Stable small benign appearing bilateral axillary lymph nodes. No other significant abnormalities are identified. There has been no significant change since the prior study. BI/SCRN MAMM (CAD)W/INDIA BILAT IMPRESSION: Stable bilateral screening mammogram. Yearly follow-up mammogram recommended. (A) ASSESSMENT CATEGORY: BIRADS Category 2: Benign. A letter regarding these results will be sent to the patient by the facility within 30 days. Approximately 10% of breast cancers are not detected by mammography. A normal mammogram should not delay biopsy of a clinically suspicious abnormality. [id number] Electronically Signed: Devonte Justin MD at 11:03 EST ,
== END | disposition home or self-care (01) ==
LOC: OPBI 09:55
PROVIDERS: PCP Family Medicine; Referring Provider Family Medicine; Visit Provider Family Medicine
DX: Z12.31 Encounter for screening mammogram for malignant neoplasm of breast (principal); Z80.3 Family history of malignant neoplasm of breast
CPT/HCPCS: 77063; 77067

== ENCOUNTER → 2025-07-30 | Outpatient (CLI) | payer MEDICAID, SELFPAY ==
--- NOTE | 2025-07-30 08:11 | BI_ITS ---
EXAM: SCRN MAMM (CAD)W/INDIA BILAT DATE: 07/30/2025 CLINICAL HISTORY: F, Age 59 y/o , SCREENING Aunt with breast cancer. Prior left ultrasound-guided breast biopsy. TECHNIQUE: Procedure Code: [id number] Modality: MG Procedure: SCRN MAMM (CAD)W/INDIA BILAT COMPARISON: Prior exam(s) dated July 29, 2024.. FINDINGS: TISSUE DENSITY: The breasts are heterogeneously dense, which may obscure small masses. Bilateral Breast Mammographic Findings: No significant masses, calcifications or other abnormalities are identified. A tissue clip marker is once again seen in the upper lateral aspect of the left breast. Stable small benign-appearing bilateral axillary lymph nodes. No suspicious masses, areas of developing architectural distortion, or suspicious calcifications. There has been no significant interval change. BI/SCRN MAMM (CAD)W/INDIA BILAT IMPRESSION: Stable bilateral screening mammogram. OVERALL FINAL ASSESSMENT BI-RADS 2: BENIGN RECOMMENDATION: Routine annual follow-up in 1 Year Additional Recommendation none A letter with findings and recommendations will be mailed to the patient. Reading Location: [id number]
[2025-07-30 08:46] LABS: Hematocrit 38.1 % (37-47); Hemoglobin 12.8 g/dL (12.0-15.0); Immature Granulocytes Count 0.030 X10^3/uL (0.0-0.0); Mean Corp Hgb Conc 33.6 g/dL (32-36); Mean Corpuscular Volume 82.8 fL (81-99); Mean Platelet Vol. 10.8 fl (6.2-12.0); NRBC Flagged by Analyzer 0 % (0-5); Platelet Count 334 K/mm3 (150-450); RBC Distribution Width CV 12.9 % (11.6-14.6); RBC Distribution Width SD 38.9 fl (35.1-43.9); Red Blood Count 4.60 M/mm3 (4.2-5.4); White Blood Count 7.8 K/mm3 (4.4-11.0)
[2025-07-30 09:24] LABS: AST(SGOT) 19 U/L (<=31); Alanine Aminotransfer ALT/SGPT 18 U/L (<=34); Albumin, Serum 4.0 g/dL (3.4-4.8); Alkaline Phosphatase 126 U/L (35-104); Anion Gap 10 (5-15); BUN 11 mg/dL (4-19); BUN/Creat Ratio 14.4 RATIO (10-20); Calcium,Total 9.3 mg/dL (7.6-11.0); Carbon Dioxide 24.0 mmol/L (21.0-32.0); Chloride 107 mmol/L (98-108); Cholesterol 204 mg/dL (<=200); Globulin 3.3 g/dL (2.2-4.2); Glucose 88 mg/dL (70-99); Low Density Lipoprotein Calc. 120 mg/dL; Potassium 4.3 mmol/L (3.3-5.1); Triglycerides 192 mg/dL; Very Low Density Lipoprotein 38 mg/dL (5-40); cholesterol:hdl ratio screen 4.06
== END | disposition home or self-care (01) ==
LOC: OPBI 07:51
PROVIDERS: PCP Family Medicine; Referring Provider Family Medicine; Visit Provider Family Medicine
DX: Z00.00 Encounter for general adult medical examination without abnormal findings (principal); Z12.31 Encounter for screening mammogram for malignant neoplasm of breast
CPT/HCPCS: 36415; 77063; 77067; 80053; 80061; 85025